=== PATIENT | female | born 1945 | race Two or more races ===

== ENCOUNTER 2021-10-25 08:58 | Outpatient (CLI) | payer OTHER | END 2021-10-25 09:01 | disposition home or self-care (01) | LOC: SONOGRAMA 08:58 | PROVIDERS: ATTEND Pathology Anatomic Pathology & Clinical Pathology | DX: E04.8 Other specified nontoxic goiter (principal) ==

== ENCOUNTER 2024-02-23 13:35 | Outpatient (CLI) | payer OTHER | END 2024-02-23 13:39 | disposition home or self-care (01) | LOC: SONOGRAMA 13:35 | PROVIDERS: ATTEND Pathology Anatomic Pathology & Clinical Pathology | DX: D34 Benign neoplasm of thyroid gland (principal); E07.89 Other specified disorders of thyroid; E04.8 Other specified nontoxic goiter ==

== ENCOUNTER 2025-02-11 08:42 | Outpatient (CLI) | payer OTHER | END 2025-02-11 08:45 | disposition home or self-care (01) | LOC: SONOGRAMA 08:42 | PROVIDERS: ATTEND Internal Medicine Endocrinology, Diabetes & Metabolism | DX: E04.8 Other specified nontoxic goiter (principal) ==